=== PATIENT | female | born 1975 | race Caucasian/White ===

== ENCOUNTER 2022-03-26 12:03 | Inpatient (IN) ==
[2022-03-26] MEDS ORDERED: Acetaminophen 325 MG TABLET PO PRN (14:16)
[2022-03-26] MEDS ORDERED: Ipratropium/Albuterol Neb 3 ML IH PRN (14:16)
[2022-03-26] MEDS ORDERED: haloperidoL 1 MG TABLET PO PRN (16:29)
[2022-03-26] MEDS ORDERED: hydrOXYzine pamoate 25 MG CAPSULE PO PRN (16:31)
[2022-03-26] MEDS: *HR* Heparin 5,000 UNIT/ML VIAL SQ SCH (17:41)
[2022-03-26] MEDS: ARIPiprazole 10 MG TABLET PO SCH (21:56)
[2022-03-26] MEDS: risperiDONE 1 MG TABLET PO SCH (21:57)
[2022-03-26] MEDS: Topiramate 100 MG TABLET PO SCH (21:57)
[2022-03-26] MEDS: KETOTIFEN FUMARATE OP SCH (21:58)
[2022-03-27] MEDS: *HR* Heparin 5,000 UNIT/ML VIAL SQ SCH ×2 (06:37→17:51)
[2022-03-27 07:34] LABS: Basophils % 0.5 %; Eosinophils # 0.2 K/mcL (0.0-0.6); Hematocrit 37.1 % (35.3-44.9); Hemoglobin 11.8 g/dL (11.5-15.4); Immature Granulocytes % 0.5 % (0-4); Lymphocytes # 0.8 K/mcL (0.6-4.6); Lymphocytes % 14.6 %; Mean Corpuscular HGB Conc 31.8 g/dL (31.6-35.5); Mean Corpuscular Hemoglobin 32.8 pg (28.0-33.3); Mean Corpuscular Volume 103.1 fL (83.0-100.0); Mean Platelet Volume 9.9 fL (9.4-12.4); Monocytes # 0.5 K/mcL (0.0-1.3); Monocytes % 7.9 %; Neutrophils # 4.2 K/mcL (1.6-8.9); Platelet Count 261 K/mcL (140-400); Red Cell Distribution Width 15.1 % (11.5-14.5); Segmented Neutrophils % 73.5 %; White Blood Count 5.7 K/mcL (4.3-11.1)
[2022-03-27 07:56] LABS: BUN/Creatinine Ratio 17 (6-26); Blood Urea Nitrogen 19 mg/dL (6-20); Calcium 7.9 mg/dL (8.6-10.3); Carbon Dioxide 29 mEq/L (23-29); Chloride 107 mEq/L (98-107); Glucose 94 mg/dL (70-105); Osmolality,Calculated 292 (280-300); Sodium 140 mEq/L (136-145); eGFR For African Americans > 60 (> 60); eGFR For Non-African Americans 54 (> 60)
[2022-03-27] MEDS: FLUoxetine 20 MG CAPSULE PO SCH (09:01)
[2022-03-27] MEDS: Loratadine 10 MG TABLET PO SCH (09:01)
[2022-03-27] MEDS: risperiDONE 1 MG TABLET PO SCH ×2 (09:01→19:36)
[2022-03-27] MEDS: Furosemide 20 MG TABLET PO SCH (09:01)
[2022-03-27] MEDS: Fluticasone Propionate Nasal 50 MCG/SPRAY BOTTLE NS SCH (09:02)
[2022-03-27] MEDS: Topiramate 100 MG TABLET PO SCH ×2 (09:02→19:36)
[2022-03-27] MEDS: Cholecalciferol (D-3) 1,000 UNIT (25MCG) TABLET PO SCH (09:02)
[2022-03-27] MEDS: TOLNAFTATE TP SCH (09:03)
[2022-03-27] MEDS: KETOTIFEN FUMARATE OP SCH ×2 (09:03→20:11)
[2022-03-27] MEDS: ARIPiprazole 10 MG TABLET PO SCH (19:36)
[2022-03-28] MEDS: *HR* Heparin 5,000 UNIT/ML VIAL SQ SCH ×2 (05:12→17:19)
[2022-03-28] MEDS: Cholecalciferol (D-3) 1,000 UNIT (25MCG) TABLET PO SCH (09:42)
[2022-03-28] MEDS: risperiDONE 1 MG TABLET PO SCH ×2 (09:42→20:55)
[2022-03-28] MEDS: Topiramate 100 MG TABLET PO SCH ×2 (09:42→20:54)
[2022-03-28] MEDS: Loratadine 10 MG TABLET PO SCH (09:42)
[2022-03-28] MEDS: FLUoxetine 20 MG CAPSULE PO SCH (09:42)
[2022-03-28] MEDS: Fluticasone Propionate Nasal 50 MCG/SPRAY BOTTLE NS SCH (09:43)
[2022-03-28] MEDS: KETOTIFEN FUMARATE OP SCH ×2 (09:44→20:55)
[2022-03-28] MEDS: TOLNAFTATE TP SCH (09:44)
[2022-03-28] MEDS: ARIPiprazole 10 MG TABLET PO SCH (20:54)
[2022-03-29] MEDS: *HR* Heparin 5,000 UNIT/ML VIAL SQ SCH ×2 (06:12→17:02)
[2022-03-29] MEDS: FLUoxetine 20 MG CAPSULE PO SCH (08:22)
[2022-03-29] MEDS: Fluticasone Propionate Nasal 50 MCG/SPRAY BOTTLE NS SCH (08:22)
[2022-03-29] MEDS: KETOTIFEN FUMARATE OP SCH ×2 (08:23→22:08)
[2022-03-29] MEDS: Cholecalciferol (D-3) 1,000 UNIT (25MCG) TABLET PO SCH (08:23)
[2022-03-29] MEDS: risperiDONE 1 MG TABLET PO SCH ×3 (08:23→22:07)
[2022-03-29] MEDS: Loratadine 10 MG TABLET PO SCH (08:23)
[2022-03-29] MEDS: Topiramate 100 MG TABLET PO SCH ×2 (08:23→22:08)
[2022-03-29] MEDS: TOLNAFTATE TP SCH (08:24)
[2022-03-29] MEDS: ARIPiprazole 10 MG TABLET PO SCH (22:06)
[2022-03-30] MEDS: *HR* Heparin 5,000 UNIT/ML VIAL SQ SCH ×2 (06:01→20:17)
[2022-03-30] MEDS: Topiramate 100 MG TABLET PO SCH ×2 (09:04→20:17)
[2022-03-30] MEDS: Cholecalciferol (D-3) 1,000 UNIT (25MCG) TABLET PO SCH (09:04)
[2022-03-30] MEDS: risperiDONE 1 MG TABLET PO SCH ×2 (09:04→20:16)
[2022-03-30] MEDS: Loratadine 10 MG TABLET PO SCH (09:04)
[2022-03-30] MEDS: FLUoxetine 20 MG CAPSULE PO SCH (09:04)
[2022-03-30] MEDS: Fluticasone Propionate Nasal 50 MCG/SPRAY BOTTLE NS SCH (09:05)
[2022-03-30] MEDS: KETOTIFEN FUMARATE OP SCH ×2 (09:06→20:17)
[2022-03-30] MEDS: TOLNAFTATE TP SCH (09:06)
[2022-03-30] MEDS: ARIPiprazole 10 MG TABLET PO SCH (20:16)
[2022-03-31] MEDS: *HR* Heparin 5,000 UNIT/ML VIAL SQ SCH ×2 (06:27→17:38)
[2022-03-31] MEDS: TOLNAFTATE TP SCH (10:36)
[2022-03-31] MEDS: Cholecalciferol (D-3) 1,000 UNIT (25MCG) TABLET PO SCH (10:36)
[2022-03-31] MEDS: Topiramate 100 MG TABLET PO SCH ×2 (10:36→21:35)
[2022-03-31] MEDS: FLUoxetine 20 MG CAPSULE PO SCH (10:36)
[2022-03-31] MEDS: Loratadine 10 MG TABLET PO SCH (10:36)
[2022-03-31] MEDS: Furosemide 20 MG TABLET PO SCH (10:37)
[2022-03-31] MEDS: KETOTIFEN FUMARATE OP SCH ×2 (10:37→21:36)
[2022-03-31] MEDS: Fluticasone Propionate Nasal 50 MCG/SPRAY BOTTLE NS SCH (10:37)
[2022-03-31] MEDS: risperiDONE 1 MG TABLET PO SCH (21:35)
[2022-03-31] MEDS: ARIPiprazole 10 MG TABLET PO SCH (21:36)
[2022-04-01] MEDS: *HR* Heparin 5,000 UNIT/ML VIAL SQ SCH ×2 (05:46→18:12)
[2022-04-01] MEDS: FLUoxetine 20 MG CAPSULE PO SCH (08:14)
[2022-04-01] MEDS: risperiDONE 1 MG TABLET PO SCH ×2 (08:14→21:49)
[2022-04-01] MEDS: Loratadine 10 MG TABLET PO SCH (08:14)
[2022-04-01] MEDS: KETOTIFEN FUMARATE OP SCH ×2 (08:15→21:49)
[2022-04-01] MEDS: Cholecalciferol (D-3) 1,000 UNIT (25MCG) TABLET PO SCH (08:15)
[2022-04-01] MEDS: Topiramate 100 MG TABLET PO SCH ×2 (08:15→21:48)
[2022-04-01] MEDS: Furosemide 20 MG TABLET PO SCH (08:15)
[2022-04-01] MEDS: TOLNAFTATE TP SCH (08:15)
[2022-04-01] MEDS: Fluticasone Propionate Nasal 50 MCG/SPRAY BOTTLE NS SCH (08:15)
[2022-04-01] MEDS: ARIPiprazole 10 MG TABLET PO SCH (21:48)
[2022-04-02] MEDS: *HR* Heparin 5,000 UNIT/ML VIAL SQ SCH ×2 (05:16→16:45)
[2022-04-02] MEDS: FLUoxetine 20 MG CAPSULE PO SCH (08:31)
[2022-04-02] MEDS: Furosemide 20 MG TABLET PO SCH (08:31)
[2022-04-02] MEDS: Cholecalciferol (D-3) 1,000 UNIT (25MCG) TABLET PO SCH (08:32)
[2022-04-02] MEDS: risperiDONE 1 MG TABLET PO SCH ×2 (08:32→20:23)
[2022-04-02] MEDS: Fluticasone Propionate Nasal 50 MCG/SPRAY BOTTLE NS SCH (08:32)
[2022-04-02] MEDS: Loratadine 10 MG TABLET PO SCH (08:32)
[2022-04-02] MEDS: Topiramate 100 MG TABLET PO SCH ×2 (08:32→20:22)
[2022-04-02] MEDS: TOLNAFTATE TP SCH (08:41)
[2022-04-02] MEDS: KETOTIFEN FUMARATE OP SCH ×2 (08:41→20:23)
[2022-04-02] MEDS: ARIPiprazole 10 MG TABLET PO SCH (20:23)
[2022-04-03] MEDS: *HR* Heparin 5,000 UNIT/ML VIAL SQ SCH ×2 (06:25→16:23)
[2022-04-03] MEDS: FLUoxetine 20 MG CAPSULE PO SCH (08:21)
[2022-04-03] MEDS: risperiDONE 1 MG TABLET PO SCH ×2 (08:22→20:34)
[2022-04-03] MEDS: Cholecalciferol (D-3) 1,000 UNIT (25MCG) TABLET PO SCH (08:22)
[2022-04-03] MEDS: Loratadine 10 MG TABLET PO SCH (08:22)
[2022-04-03] MEDS: Topiramate 100 MG TABLET PO SCH ×2 (08:22→20:33)
[2022-04-03] MEDS: Furosemide 20 MG TABLET PO SCH (08:22)
[2022-04-03] MEDS: TOLNAFTATE TP SCH (08:23)
[2022-04-03] MEDS: Fluticasone Propionate Nasal 50 MCG/SPRAY BOTTLE NS SCH (08:23)
[2022-04-03] MEDS: KETOTIFEN FUMARATE OP SCH ×2 (08:23→20:34)
[2022-04-03] MEDS: ARIPiprazole 10 MG TABLET PO SCH (20:33)
[2022-04-04] MEDS: *HR* Heparin 5,000 UNIT/ML VIAL SQ SCH ×2 (05:58→17:56)
[2022-04-04] MEDS: Topiramate 100 MG TABLET PO SCH ×2 (08:10→20:48)
[2022-04-04] MEDS: risperiDONE 1 MG TABLET PO SCH ×2 (08:10→20:48)
[2022-04-04] MEDS: Loratadine 10 MG TABLET PO SCH (08:10)
[2022-04-04] MEDS: Furosemide 20 MG TABLET PO SCH (08:10)
[2022-04-04] MEDS: FLUoxetine 20 MG CAPSULE PO SCH (08:11)
[2022-04-04] MEDS: Cholecalciferol (D-3) 1,000 UNIT (25MCG) TABLET PO SCH (08:11)
[2022-04-04] MEDS: KETOTIFEN FUMARATE OP SCH ×2 (08:11→20:48)
[2022-04-04] MEDS: TOLNAFTATE TP SCH (08:11)
[2022-04-04] MEDS: Fluticasone Propionate Nasal 50 MCG/SPRAY BOTTLE NS SCH (08:13)
[2022-04-04] MEDS: ARIPiprazole 10 MG TABLET PO SCH (20:48)
[2022-04-05] MEDS: *HR* Heparin 5,000 UNIT/ML VIAL SQ SCH ×2 (06:11→17:06)
[2022-04-05] MEDS: Furosemide 20 MG TABLET PO SCH (07:37)
[2022-04-05] MEDS: FLUoxetine 20 MG CAPSULE PO SCH (07:37)
[2022-04-05] MEDS: Cholecalciferol (D-3) 1,000 UNIT (25MCG) TABLET PO SCH (07:37)
[2022-04-05] MEDS: Loratadine 10 MG TABLET PO SCH (07:37)
[2022-04-05] MEDS: Topiramate 100 MG TABLET PO SCH ×2 (07:37→20:09)
[2022-04-05] MEDS: risperiDONE 1 MG TABLET PO SCH ×2 (07:38→20:09)
[2022-04-05] MEDS: Fluticasone Propionate Nasal 50 MCG/SPRAY BOTTLE NS SCH (07:51)
[2022-04-05] MEDS: TOLNAFTATE TP SCH (07:51)
[2022-04-05] MEDS: KETOTIFEN FUMARATE OP SCH ×2 (07:51→20:09)
[2022-04-05] MEDS: ARIPiprazole 10 MG TABLET PO SCH (20:09)
[2022-04-06] MEDS: *HR* Heparin 5,000 UNIT/ML VIAL SQ SCH ×2 (05:57→17:23)
[2022-04-06] MEDS: FLUoxetine 20 MG CAPSULE PO SCH (08:06)
[2022-04-06] MEDS: risperiDONE 1 MG TABLET PO SCH ×2 (08:07→20:12)
[2022-04-06] MEDS: Topiramate 100 MG TABLET PO SCH ×2 (08:07→20:12)
[2022-04-06] MEDS: Loratadine 10 MG TABLET PO SCH (08:07)
[2022-04-06] MEDS: Cholecalciferol (D-3) 1,000 UNIT (25MCG) TABLET PO SCH (08:07)
[2022-04-06] MEDS: Furosemide 20 MG TABLET PO SCH (08:07)
[2022-04-06] MEDS: Fluticasone Propionate Nasal 50 MCG/SPRAY BOTTLE NS SCH (08:10)
[2022-04-06] MEDS: TOLNAFTATE TP SCH (08:12)
[2022-04-06] MEDS: KETOTIFEN FUMARATE OP SCH ×2 (08:12→20:12)
[2022-04-06] MEDS: ARIPiprazole 10 MG TABLET PO SCH (20:11)
[2022-04-07] MEDS: *HR* Heparin 5,000 UNIT/ML VIAL SQ SCH ×2 (05:07→17:31)
[2022-04-07] MEDS: Cholecalciferol (D-3) 1,000 UNIT (25MCG) TABLET PO SCH (08:45)
[2022-04-07] MEDS: FLUoxetine 20 MG CAPSULE PO SCH (08:45)
[2022-04-07] MEDS: risperiDONE 1 MG TABLET PO SCH ×2 (08:45→20:29)
[2022-04-07] MEDS: Topiramate 100 MG TABLET PO SCH ×2 (08:45→20:29)
[2022-04-07] MEDS: Furosemide 20 MG TABLET PO SCH (08:45)
[2022-04-07] MEDS: Loratadine 10 MG TABLET PO SCH (08:45)
[2022-04-07] MEDS: Fluticasone Propionate Nasal 50 MCG/SPRAY BOTTLE NS SCH (08:46)
[2022-04-07] MEDS: TOLNAFTATE TP SCH (08:48)
[2022-04-07] MEDS: KETOTIFEN FUMARATE OP SCH ×2 (11:22→20:03)
[2022-04-07] MEDS: ARIPiprazole 10 MG TABLET PO SCH (20:28)
[2022-04-08] MEDS: *HR* Heparin 5,000 UNIT/ML VIAL SQ SCH ×3 (05:00→17:59)
[2022-04-08] MEDS: Furosemide 20 MG TABLET PO SCH (08:10)
[2022-04-08] MEDS: risperiDONE 1 MG TABLET PO SCH ×2 (08:10→20:40)
[2022-04-08] MEDS: Cholecalciferol (D-3) 1,000 UNIT (25MCG) TABLET PO SCH (08:10)
[2022-04-08] MEDS: Loratadine 10 MG TABLET PO SCH (08:10)
[2022-04-08] MEDS: Topiramate 100 MG TABLET PO SCH ×2 (08:11→20:40)
[2022-04-08] MEDS: FLUoxetine 20 MG CAPSULE PO SCH (08:11)
[2022-04-08] MEDS: Fluticasone Propionate Nasal 50 MCG/SPRAY BOTTLE NS SCH (08:12)
[2022-04-08] MEDS: KETOTIFEN FUMARATE OP SCH ×2 (08:14→20:39)
[2022-04-08] MEDS: TOLNAFTATE TP SCH (08:15)
[2022-04-08] MEDS: ARIPiprazole 10 MG TABLET PO SCH (20:40)
[2022-04-09] MEDS: *HR* Heparin 5,000 UNIT/ML VIAL SQ SCH ×2 (05:25→18:19)
[2022-04-09 07:04] LABS: Hematocrit 32.8 % (35.3-44.9); Hemoglobin 10.3 g/dL (11.5-15.4); Mean Corpuscular HGB Conc 31.4 g/dL (31.6-35.5); Mean Corpuscular Hemoglobin 32.4 pg (28.0-33.3); Mean Corpuscular Volume 103.1 fL (83.0-100.0); Mean Platelet Volume 11.3 fL (9.4-12.4); Platelet Count 158 K/mcL (140-400); Red Blood Count 3.18 M/mcL (3.82-4.97); Red Cell Distribution Width 16.9 % (11.5-14.5); White Blood Count 5.1 K/mcL (4.3-11.1)
[2022-04-09 07:24] LABS: Calcium 7.8 mg/dL (8.6-10.3)
[2022-04-09] MEDS: FLUoxetine 20 MG CAPSULE PO SCH (09:42)
[2022-04-09] MEDS: TOLNAFTATE TP SCH (09:42)
[2022-04-09] MEDS: Loratadine 10 MG TABLET PO SCH (09:42)
[2022-04-09] MEDS: Cholecalciferol (D-3) 1,000 UNIT (25MCG) TABLET PO SCH (09:42)
[2022-04-09] MEDS: Topiramate 100 MG TABLET PO SCH ×2 (09:42→21:15)
[2022-04-09] MEDS: KETOTIFEN FUMARATE OP SCH ×2 (09:43→21:16)
[2022-04-09] MEDS: Fluticasone Propionate Nasal 50 MCG/SPRAY BOTTLE NS SCH (09:43)
[2022-04-09] MEDS: risperiDONE 1 MG TABLET PO SCH ×2 (09:44→21:16)
[2022-04-09] MEDS: ARIPiprazole 10 MG TABLET PO SCH (21:16)
[2022-04-10] MEDS: *HR* Heparin 5,000 UNIT/ML VIAL SQ SCH ×2 (06:52→20:20)
[2022-04-10] MEDS: risperiDONE 1 MG TABLET PO SCH ×2 (08:03→20:09)
[2022-04-10] MEDS: FLUoxetine 20 MG CAPSULE PO SCH (08:03)
[2022-04-10] MEDS: Cholecalciferol (D-3) 1,000 UNIT (25MCG) TABLET PO SCH (08:04)
[2022-04-10] MEDS: Topiramate 100 MG TABLET PO SCH ×2 (08:04→20:09)
[2022-04-10] MEDS: KETOTIFEN FUMARATE OP SCH ×2 (08:05→20:19)
[2022-04-10] MEDS: TOLNAFTATE TP SCH (08:05)
[2022-04-10] MEDS: Fluticasone Propionate Nasal 50 MCG/SPRAY BOTTLE NS SCH (08:05)
[2022-04-10] MEDS: Loratadine 10 MG TABLET PO SCH (08:06)
[2022-04-10] MEDS: ARIPiprazole 10 MG TABLET PO SCH (20:09)
[2022-04-11 07:28] LABS: Calcium 7.7 mg/dL (8.6-10.3); Potassium 3.8 mEq/L (3.5-5.1)
[2022-04-11] MEDS: *HR* Heparin 5,000 UNIT/ML VIAL SQ SCH ×2 (08:51→18:22)
[2022-04-11] MEDS: FLUoxetine 20 MG CAPSULE PO SCH (08:52)
[2022-04-11] MEDS: Cholecalciferol (D-3) 1,000 UNIT (25MCG) TABLET PO SCH (08:52)
[2022-04-11] MEDS: Loratadine 10 MG TABLET PO SCH (08:53)
[2022-04-11] MEDS: risperiDONE 1 MG TABLET PO SCH ×2 (08:53→20:14)
[2022-04-11] MEDS: Topiramate 100 MG TABLET PO SCH ×2 (08:53→20:14)
[2022-04-11] MEDS: TOLNAFTATE TP SCH (08:54)
[2022-04-11] MEDS: KETOTIFEN FUMARATE OP SCH ×2 (08:54→20:15)
[2022-04-11] MEDS: Fluticasone Propionate Nasal 50 MCG/SPRAY BOTTLE NS SCH (08:54)
[2022-04-11] MEDS: ARIPiprazole 10 MG TABLET PO SCH (20:14)
[2022-04-12] MEDS: *HR* Heparin 5,000 UNIT/ML VIAL SQ SCH ×2 (05:50→17:30)
[2022-04-12] MEDS: FLUoxetine 20 MG CAPSULE PO SCH (09:19)
[2022-04-12] MEDS: Topiramate 100 MG TABLET PO SCH ×2 (09:19→22:08)
[2022-04-12] MEDS: Loratadine 10 MG TABLET PO SCH (09:19)
[2022-04-12] MEDS: Cholecalciferol (D-3) 1,000 UNIT (25MCG) TABLET PO SCH (09:19)
[2022-04-12] MEDS: risperiDONE 1 MG TABLET PO SCH ×2 (09:20→22:09)
[2022-04-12] MEDS: KETOTIFEN FUMARATE OP SCH ×2 (09:20→22:08)
[2022-04-12] MEDS: TOLNAFTATE TP SCH (09:20)
[2022-04-12] MEDS: Fluticasone Propionate Nasal 50 MCG/SPRAY BOTTLE NS SCH (09:35)
[2022-04-12] MEDS: ARIPiprazole 10 MG TABLET PO SCH (22:08)
[2022-04-13] MEDS: *HR* Heparin 5,000 UNIT/ML VIAL SQ SCH ×2 (05:09→17:36)
[2022-04-13] MEDS: Loratadine 10 MG TABLET PO SCH (10:29)
[2022-04-13] MEDS: Cholecalciferol (D-3) 1,000 UNIT (25MCG) TABLET PO SCH (10:29)
[2022-04-13] MEDS: risperiDONE 1 MG TABLET PO SCH ×2 (10:29→19:59)
[2022-04-13] MEDS: FLUoxetine 20 MG CAPSULE PO SCH (10:29)
[2022-04-13] MEDS: Topiramate 100 MG TABLET PO SCH ×2 (10:29→19:59)
[2022-04-13] MEDS: KETOTIFEN FUMARATE OP SCH ×2 (10:30→20:00)
[2022-04-13] MEDS: TOLNAFTATE TP SCH (10:30)
[2022-04-13] MEDS: Fluticasone Propionate Nasal 50 MCG/SPRAY BOTTLE NS SCH (10:31)
[2022-04-13] MEDS: ARIPiprazole 10 MG TABLET PO SCH (20:00)
[2022-04-14] MEDS: Topiramate 100 MG TABLET PO SCH ×2 (08:22→21:48)
[2022-04-14] MEDS: FLUoxetine 20 MG CAPSULE PO SCH (08:22)
[2022-04-14] MEDS: Loratadine 10 MG TABLET PO SCH (08:22)
[2022-04-14] MEDS: Furosemide 20 MG TABLET PO SCH (08:23)
[2022-04-14] MEDS: KETOTIFEN FUMARATE OP SCH ×2 (08:24→22:20)
[2022-04-14] MEDS: Cholecalciferol (D-3) 1,000 UNIT (25MCG) TABLET PO SCH (08:27)
[2022-04-14] MEDS: risperiDONE 1 MG TABLET PO SCH ×2 (08:28→21:49)
[2022-04-14] MEDS: TOLNAFTATE TP SCH (08:28)
[2022-04-14] MEDS: Fluticasone Propionate Nasal 50 MCG/SPRAY BOTTLE NS SCH (08:31)
[2022-04-14] MEDS: *HR* Heparin 5,000 UNIT/ML VIAL SQ SCH ×2 (08:44→18:30)
[2022-04-14] MEDS: ARIPiprazole 10 MG TABLET PO SCH (21:48)
[2022-04-15] MEDS: *HR* Heparin 5,000 UNIT/ML VIAL SQ SCH (05:09)
[2022-04-15 06:58] VITALS: BP 97/81; PULSE 51; RESP 18; TEMP 98.7; O2SAT 90
[2022-04-15] MEDS: FLUoxetine 20 MG CAPSULE PO SCH (08:03)
[2022-04-15] MEDS: Topiramate 100 MG TABLET PO SCH (08:03)
[2022-04-15] MEDS: Cholecalciferol (D-3) 1,000 UNIT (25MCG) TABLET PO SCH (08:03)
[2022-04-15] MEDS: Furosemide 20 MG TABLET PO SCH (08:04)
[2022-04-15] MEDS: Loratadine 10 MG TABLET PO SCH (08:04)
[2022-04-15] MEDS: risperiDONE 1 MG TABLET PO SCH (08:04)
[2022-04-15] MEDS: Fluticasone Propionate Nasal 50 MCG/SPRAY BOTTLE NS SCH (08:04)
[2022-04-15] MEDS: TOLNAFTATE TP SCH (10:39)
[2022-04-15] MEDS: KETOTIFEN FUMARATE OP SCH (10:39)
== END 2022-04-15 13:33 | disposition home health service (06) | DRG 559 ==
LOC: SUATTDRO 16:19 → INPPIK 16:19
PROVIDERS: ADMIT Internal Medicine; ATTEND Family Medicine

== ENCOUNTER 2022-04-15 20:16 | Inpatient (IN) ==
[2022-04-15 20:45] LABS: Basophils % 0.9 %; Eosinophils # 0.1 K/mcL (0.0-0.6); Eosinophils % 1.8 %; Hematocrit 36.8 % (35.3-44.9); Hemoglobin 11.4 g/dL (11.5-15.4); Immature Granulocytes % 0.4 % (0-4); Lymphocytes # 0.7 K/mcL (0.6-4.6); Lymphocytes % 14.7 %; Mean Corpuscular Hemoglobin 32.3 pg (28.0-33.3); Mean Corpuscular Volume 104.2 fL (83.0-100.0); Mean Platelet Volume 9.8 fL (9.4-12.4); Monocytes # 0.3 K/mcL (0.0-1.3); Monocytes % 6.5 %; Neutrophils # 3.4 K/mcL (1.6-8.9); Platelet Count 192 K/mcL (140-400); Red Blood Count 3.53 M/mcL (3.82-4.97); Red Cell Distribution Width 17.7 % (11.5-14.5); Segmented Neutrophils % 75.7 %; White Blood Count 4.5 K/mcL (4.3-11.1)
[2022-04-15 21:06] LABS: BUN/Creatinine Ratio 13 (6-26); Blood Urea Nitrogen 15 mg/dL (6-20); Calcium 8.2 mg/dL (8.6-10.3); Carbon Dioxide 27 mEq/L (23-29); Chloride 109 mEq/L (98-107); Glucose 123 mg/dL (70-105); Osmolality,Calculated 298 (280-300); Potassium 4.7 mEq/L (3.5-5.1); Sodium 143 mEq/L (136-145); eGFR For African Americans > 60 (> 60); eGFR For Non-African Americans 51 (> 60)
[2022-04-15 21:07] LABS: Troponin I < 0.03 ng/mL (< 0.04)
[2022-04-15] MEDS ORDERED: Furosemide 40 MG/4 ML VIAL IVP ONE (22:54)
[2022-04-16] MEDS ORDERED: Naloxone 0.4 MG/ML INJ IVP PRN (00:29)
[2022-04-16] MEDS ORDERED: Acetaminophen 325 MG TABLET PO PRN (00:29)
[2022-04-16] MEDS ORDERED: haloperidoL 1 MG TABLET PO PRN (00:57)
[2022-04-16] MEDS ORDERED: hydrOXYzine pamoate 25 MG CAPSULE PO PRN (00:58)
[2022-04-16] MEDS: Loratadine 10 MG TABLET PO SCH (10:18)
[2022-04-16] MEDS: Cholecalciferol (D-3) 1,000 UNIT (25MCG) TABLET PO SCH (10:19)
[2022-04-16] MEDS: risperiDONE 1 MG TABLET PO SCH ×2 (10:19→21:07)
[2022-04-16] MEDS: FLUoxetine 20 MG CAPSULE PO SCH (10:19)
[2022-04-16] MEDS: Topiramate 100 MG TABLET PO SCH ×2 (10:19→21:07)
[2022-04-16] MEDS: Fluticasone Propionate Nasal 50 MCG/SPRAY BOTTLE NS SCH (10:19)
[2022-04-16] MEDS: KETOTIFEN FUMARATE OP SCH ×2 (10:20→21:16)
[2022-04-16] MEDS: Furosemide 20 MG TABLET PO SCH ×2 (10:21→17:56)
[2022-04-16] MEDS: ARIPiprazole 10 MG TABLET PO SCH (21:07)
[2022-04-17 08:26] LABS: Hematocrit 32.6 % (35.3-44.9); Hemoglobin 10.1 g/dL (11.5-15.4); Mean Corpuscular Hemoglobin 32.9 pg (28.0-33.3); Mean Corpuscular Volume 106.2 fL (83.0-100.0); Mean Platelet Volume 9.7 fL (9.4-12.4); Platelet Count 169 K/mcL (140-400); Red Blood Count 3.07 M/mcL (3.82-4.97); Red Cell Distribution Width 17.6 % (11.5-14.5); White Blood Count 6.9 K/mcL (4.3-11.1)
[2022-04-17 08:46] LABS: Calcium 7.9 mg/dL (8.6-10.3); Magnesium 2.3 mg/dL (1.6-2.6); Potassium 4.2 mEq/L (3.5-5.1)
[2022-04-17] MEDS: FLUoxetine 20 MG CAPSULE PO SCH (09:04)
[2022-04-17] MEDS: Furosemide 20 MG TABLET PO SCH (09:05)
[2022-04-17] MEDS: Loratadine 10 MG TABLET PO SCH (09:05)
[2022-04-17] MEDS: risperiDONE 1 MG TABLET PO SCH ×2 (09:05→20:57)
[2022-04-17] MEDS: Cholecalciferol (D-3) 1,000 UNIT (25MCG) TABLET PO SCH (09:05)
[2022-04-17] MEDS: KETOTIFEN FUMARATE OP SCH ×2 (09:07→20:57)
[2022-04-17] MEDS: Fluticasone Propionate Nasal 50 MCG/SPRAY BOTTLE NS SCH (09:26)
[2022-04-17] MEDS: Topiramate 100 MG TABLET PO SCH ×2 (09:28→20:57)
[2022-04-17] MEDS ORDERED: Perflutren Lipid Microsphere 1.3 ML in 0.9 % Sodium Chloride 8.7 ML IVP PRN (09:49)
[2022-04-17] MEDS: Budesonide/Formoterol 160/4.5 1 PUFF INH IH SCH ×2 (11:30→22:41)
[2022-04-17] MEDS: ARIPiprazole 10 MG TABLET PO SCH (20:57)
[2022-04-18 06:33] LABS: Hematocrit 32.3 % (35.3-44.9); Hemoglobin 9.8 g/dL (11.5-15.4); Mean Corpuscular HGB Conc 30.3 g/dL (31.6-35.5); Mean Corpuscular Hemoglobin 32.3 pg (28.0-33.3); Mean Corpuscular Volume 106.6 fL (83.0-100.0); Mean Platelet Volume 9.7 fL (9.4-12.4); Platelet Count 151 K/mcL (140-400); Red Blood Count 3.03 M/mcL (3.82-4.97); Red Cell Distribution Width 17.5 % (11.5-14.5); White Blood Count 3.3 K/mcL (4.3-11.1)
[2022-04-18 06:49] LABS: Calcium 7.9 mg/dL (8.6-10.3); Potassium 4.3 mEq/L (3.5-5.1)
[2022-04-18] MEDS: Loratadine 10 MG TABLET PO SCH (09:20)
[2022-04-18] MEDS: FLUoxetine 20 MG CAPSULE PO SCH (09:20)
[2022-04-18] MEDS: Cholecalciferol (D-3) 1,000 UNIT (25MCG) TABLET PO SCH (09:20)
[2022-04-18] MEDS: risperiDONE 1 MG TABLET PO SCH ×2 (09:20→22:01)
[2022-04-18] MEDS: Topiramate 100 MG TABLET PO SCH ×2 (09:20→22:02)
[2022-04-18] MEDS: Furosemide 20 MG TABLET PO SCH (09:20)
[2022-04-18] MEDS: KETOTIFEN FUMARATE OP SCH ×2 (09:22→22:03)
[2022-04-18] MEDS: Fluticasone Propionate Nasal 50 MCG/SPRAY BOTTLE NS SCH (09:22)
[2022-04-18] MEDS: Budesonide/Formoterol 160/4.5 1 PUFF INH IH SCH ×2 (09:24→20:51)
[2022-04-18] MEDS: ARIPiprazole 10 MG TABLET PO SCH (22:01)
[2022-04-19 05:55] LABS: Hematocrit 33.4 % (35.3-44.9); Hemoglobin 10.3 g/dL (11.5-15.4); Mean Corpuscular HGB Conc 30.8 g/dL (31.6-35.5); Mean Corpuscular Hemoglobin 32.6 pg (28.0-33.3); Mean Corpuscular Volume 105.7 fL (83.0-100.0); Mean Platelet Volume 10.2 fL (9.4-12.4); Platelet Count 167 K/mcL (140-400); Red Blood Count 3.16 M/mcL (3.82-4.97); Red Cell Distribution Width 16.8 % (11.5-14.5); White Blood Count 3.9 K/mcL (4.3-11.1)
[2022-04-19] MEDS ORDERED: *HR* Enoxaparin 30 MG/0.3 ML SYRINGE SQ SCH (06:00)
[2022-04-19 06:20] LABS: BUN/Creatinine Ratio 18 (6-26); Blood Urea Nitrogen 19 mg/dL (6-20); Calcium 8.1 mg/dL (8.6-10.3); Carbon Dioxide 29 mEq/L (23-29); Chloride 107 mEq/L (98-107); Glucose 81 mg/dL (70-105); Osmolality,Calculated 295 (280-300); Potassium 4.2 mEq/L (3.5-5.1); Sodium 142 mEq/L (136-145); eGFR For African Americans > 60 (> 60); eGFR For Non-African Americans 55 (> 60)
[2022-04-19] MEDS: Budesonide/Formoterol 160/4.5 1 PUFF INH IH SCH ×2 (09:02→22:34)
[2022-04-19] MEDS: Cholecalciferol (D-3) 1,000 UNIT (25MCG) TABLET PO SCH (11:22)
[2022-04-19] MEDS: risperiDONE 1 MG TABLET PO SCH ×2 (11:22→20:43)
[2022-04-19] MEDS: FLUoxetine 20 MG CAPSULE PO SCH (11:22)
[2022-04-19] MEDS: Loratadine 10 MG TABLET PO SCH (11:22)
[2022-04-19] MEDS: Fluticasone Propionate Nasal 50 MCG/SPRAY BOTTLE NS SCH (11:23)
[2022-04-19] MEDS: Furosemide 20 MG TABLET PO SCH (11:23)
[2022-04-19] MEDS: Topiramate 100 MG TABLET PO SCH ×2 (11:23→20:43)
[2022-04-19] MEDS: KETOTIFEN FUMARATE OP SCH ×2 (11:35→20:43)
[2022-04-19] MEDS: ARIPiprazole 10 MG TABLET PO SCH (20:43)
[2022-04-20] MEDS ORDERED: *HR* Enoxaparin 40 MG/0.4 ML SYRINGE SQ SCH (06:00)
[2022-04-20 07:21] LABS: BUN/Creatinine Ratio 20 (6-26); Blood Urea Nitrogen 21 mg/dL (6-20); Calcium 8.3 mg/dL (8.6-10.3); Carbon Dioxide 31 mEq/L (23-29); Chloride 103 mEq/L (98-107); Glucose 87 mg/dL (70-105); Osmolality,Calculated 290 (280-300); Sodium 139 mEq/L (136-145); eGFR For African Americans > 60 (> 60); eGFR For Non-African Americans 58 (> 60)
[2022-04-20 07:31] LABS: Hematocrit 37.1 % (35.3-44.9); Hemoglobin 11.2 g/dL (11.5-15.4); Mean Corpuscular HGB Conc 30.2 g/dL (31.6-35.5); Mean Platelet Volume 10.2 fL (9.4-12.4); Platelet Count 171 K/mcL (140-400); Red Cell Distribution Width 16.7 % (11.5-14.5); White Blood Count 5.3 K/mcL (4.3-11.1)
[2022-04-20] MEDS: Budesonide/Formoterol 160/4.5 1 PUFF INH IH SCH (07:56)
[2022-04-20 07:57] VITALS: TEMP 97.4
[2022-04-20] MEDS: Furosemide 20 MG TABLET PO SCH (09:44)
[2022-04-20] MEDS: FLUoxetine 20 MG CAPSULE PO SCH (09:44)
[2022-04-20] MEDS: Cholecalciferol (D-3) 1,000 UNIT (25MCG) TABLET PO SCH (09:44)
[2022-04-20] MEDS: KETOTIFEN FUMARATE OP SCH (09:45)
[2022-04-20] MEDS: Loratadine 10 MG TABLET PO SCH (09:45)
[2022-04-20] MEDS: risperiDONE 1 MG TABLET PO SCH (09:45)
[2022-04-20] MEDS: Topiramate 100 MG TABLET PO SCH (09:45)
[2022-04-20] MEDS: Fluticasone Propionate Nasal 50 MCG/SPRAY BOTTLE NS SCH (09:46)
[2022-04-20 10:25] VITALS: RESP 17
[2022-04-20 15:42] VITALS: O2SAT 95
[2022-04-20 15:51] VITALS: BP 108/59; PULSE 92
[2022-04-20 17:18] LABS: Influenza A PCR Negative (Negative); Influenza B PCR Negative (Negative); Resp. Syncytial Virus PCR Negative (Negative)
[2022-04-20 17:20] LABS: SARS-CoV-2 by PCR (In House) Negative (Negative)
== END 2022-04-20 19:08 | disposition home health service (06) | DRG 291 ==
LOC: EMEROOPIK 20:16 → INPPIK 20:16 → SUATTDRO 04-17 18:54 → INPPIK 04-17 19:36
PROVIDERS: ADMIT Family Medicine; ATTEND Family Medicine